=== PATIENT | male | born 1965 | race Caucasian/White ===

== ENCOUNTER 2020-02-29 01:27 | Emergency (ER) | payer OTHER, SELFPAY ==
[2020-02-29] VITALS (7 sets, daily range): BP systolic 131–153; BP diastolic 76–97; PULSE 50–82; RESP 12–18; TEMP 36.7–37.2; O2SAT 96–98; BMI 25.0
--- NOTE | 2020-02-29 01:50 | ECG_ITS ---
APPROVED REPORT Exam: Resting ECG HR:50 bpm ECG Measurements Heart Rate 50 AXES CA 176 P 24 QRSd 90 QRS -14 QT 440 T 11 QTc 401 <Conclusion> Sinus bradycardia Voltage criteria for left ventricular hypertrophy Abnormal ECG Electronically signed by : Cullen Zhang, 02/29/2020 08:34:56
--- NOTE | 2020-02-29 01:53 | XR_ITS ---
PROCEDURE: XR CHEST 2V CLINICAL HISTORY: chest pain Scapular pain, chest pain COMPARISON: No exams were available for comparison FINDINGS: The cardiomediastinal silhouette and pulmonary vascularity are within normal limits. The lungs are clear without infiltrates, suspicious nodules, or pleural effusions. No acute bony abnormalities. IMPRESSION: No acute findings. Dictated by: Asaf Huggins MD 02/29/2020 07:40 Asaf Huggins MD in [place] 02/29/2020 07:59
[2020-02-29 02:00] LABS: Basophils # 0.1 K/mm3 (0-0.2); Basophils % 0.7 % (0.1-2.0); Eosinophils # 0.3 K/mm3 (0.0-0.4); Eosinophils % 4.3 % (0.1-12.0); Hematocrit 45.9 % (42.0-52.0); Hemoglobin 15.7 g/dL (14.1-18.0); Lymphocytes # 2.5 K/mm3 (0.7-4.5); Lymphocytes % 36.3 % (10-50); Mean Corpuscular HGB Conc 34.1 g/dL (31.8-35.4); Mean Corpuscular Hemoglobin 30.5 pg (27.0-31.2); Mean Corpuscular Volume 89.3 fl (80-94); Mean Platelet Volume 8.1 fl (7.4-10.4); Monocytes # 0.4 K/mm3 (0.1-1.0); Monocytes % 5.7 % (1.7-9.3); Neutrophils # 3.6 K/mm3 (1.8-7.8); Neutrophils % 52.9 % (37.0-80.0); Platelet Count 170 K/mm3 (142-424); Red Blood Count 5.14 M/mm3 (4.60-6.20); Red Cell Distribution Width 13.7 % (11.5-17.5); White Blood Count 6.9 K/mm3 (4.8-10.8)
[2020-02-29 02:06] LABS: Anion Gap 10.8 mEq/L (5-15); Blood Urea Nitrogen 11 mg/dl (9-20); Carbon Dioxide 31 mmol/L (22.0-30.0); Chloride 102 mmol/L (98-107); Creatinine Clearance Estimated 123 mL/min (50-200); Estimated Glomerular Filt Rate 101 ml/min (>60); GFR (African American) 122 ML/MIN (>60); Glucose 105 mg/dl (74-100); Potassium 3.8 mmoL/L (3.5-5.1); Sodium 140 mmol/L (136-145)
[2020-02-29 02:22] LABS: Troponin I < 0.01 ng/ml (0.00-0.034)
--- NOTE | 2020-02-29 02:50 | HMH.EDCP ---
ED Disposition Clinical Impression: Atypical chest pain Disposition: Home, Self-Care Condition on Discharge: Good Instructions: DI for Atypical Chest Pain Additional Instructions: call pcp for follow up Referrals: Rocío Rhodes MD [Primary Care Provider] - - Critical Care Critical Care Time: No Attestation: On 02/29/20, the high probability of a clinically significant, sudden or life threatening deterioration of the following system(s) required my full and direct attention, intervention and personal management. The time I documented below is in addition to time spent performing reported procedures but includes the following listed in this critical care notation. Medical Decision Making - Medical Records Medical records reviewed: Yes: I reviewed the patient's medical records. - [place] Inquiry Pt receiving controlled substance: No Vital Signs: 02/29/20 01:42 02/29/20 02:52 02/29/20 03:18 Temperature 98.9 F Temperature Source Oral Pulse Rate [Right Brachial] 77 56 L 50 L Respiratory Rate 16 18 18 Blood Pressure [Right Arm] 150/97 H 137/79 131/77 Blood Pressure Mean [Right Arm] 114 98 95 Blood Pressure Source [Right Arm] Automatic Cuff Blood Pressure Position [Right Arm] Sitting 02 Sat by Pulse Oximetry 98 97 98 Oxygen Delivery Method Room Air 02/29/20 03:30 02/29/20 04:00 02/29/20 05:07 Temperature 98.0 F Temperature Source Oral Pulse Rate [Right Brachial] 76 82 61 Respiratory Rate 12 16 18 Blood Pressure [Right Arm] 141/79 H 153/80 H 138/76 Blood Pressure Mean [Right Arm] 99 104 96 Blood Pressure Source [Right Arm] Automatic Cuff Automatic Cuff Blood Pressure Position [Right Arm] Sitting Sitting 02 Sat by Pulse Oximetry 98 98 96 Oxygen Delivery Method Room Air - Lab Data Lab results reviewed: Yes: I reviewed the patient's lab results. Lab Results 02/29/20 01:49: WBC 6.9, RBC 5.14, Hgb 15.7, Hct 45.9, MCV 89.3, MCH 30.5, MCHC 34.1, RDW 13.7, Plt Count 170, MPV 8.1, Neut % (Auto) 52.9, Lymph % (Auto) 36.3, [place] % (Auto) 5.7, Eos % (Auto) 4.3, Baso % (Auto) 0.7, Neut # (Auto) 3.6, Lymph # (Auto) 2.5, [place] # (Auto) 0.4, Eos # (Auto) 0.3, Baso # (Auto) 0.1 02/29/20 01:49: Troponin I < 0.01 02/29/20 01:49: Sodium 140, Potassium 3.8, Chloride 102, Carbon Dioxide 31 H, Anion Gap 10.8, BUN 11, Creatinine 0.80, Estimated Creat Clear 123, Estimated GFR 101, Est GFR ( Amer) 122, Glucose 105 H, Calcium 9.0 02/29/20 01:49: Lipase 64 02/29/20 04:22: Troponin I < 0.01 Result diagrams: 02/29/20 01:49 02/29/20 01:49 Orders (Tests/Meds): ED MEDICATIONS Discontinued Medications Generic Name Dose Route Start Last Admin Trade Name Freq PRN Reason Stop Dose Admin Ioversol 70 ml 02/29/20 03:42 02/29/20 03:43 Rad-Optiray 350 100ml Vial IV 02/29/20 03:43 70 ml ONCE ONE Administration Protocol Sodium Chloride 40 ml 02/29/20 03:42 02/29/20 03:31 Rad-Ns 50ml Vial IV 02/29/20 03:43 40 ml ONCE ONE Administration Sodium Chloride 10 ml 02/29/20 03:42 02/29/20 03:31 Rad-Saline Flush 10ml Syringe IV 02/29/20 03:43 10 ml ONCE ONE Administration ORDERS Category Date Time Status CT Chest w/PE protocol [CT angio chest] Stat Cat Scan 02/29/20 03:03 Taken XR chest 2V Stat Exams 02/29/20 01:53 Taken Troponin I Q3H Lab 02/29/20 08:00 Ordered - Radiology Data #1 Image(s): Chest Image Reviewed: Yes I reviewed the patient's radiology image Preliminary Findings: Normal/NAD - CT Data CT Scan: Chest Time Received: 05:[address] Reviewed: Yes: I have viewed the radiologist's interpretation Preliminary Findings: Normal/NAD - ECG Data Tracing #1 Arrhythmias present: sinus kaitlin Ischemic changes: non-specific ST-T wave changes Chest Pain HPI - General Chief Complaint: Chest Pain Stated Complaint: Upper back pain, no injury Time Seen by Provider: 02/29/20 02:00 Mode of Arrival: Family Vehicle Source of Information: [place]
--- NOTE | 2020-02-29 03:03 | CT_ITS ---
PROCEDURE: CT ANGIO CHEST CLINCIAL INDICATION: scapula pain Left-sided chest and scapular pain COMPARISON: CT ABDPELW/O CT ABD PELVIS W/O CONTRAST from 01/17/2013 TECHNIQUE: IV Contrast: 70ML OPTIRAY 350 Axial images obtained with sagittal and coronal reformats. All CT scans at the facility use one or more dose reduction, viz: automated exposure control, ma/kV adjustment per patient size (including targeted exams where dose is matched to indication, i.e. head), or iterative reconstruction technique. FINDINGS: HEART AND MEDIASTINAL STRUCTURES: No evidence of pulmonary embolus aortic aneurysm or aortic dissection. No mediastinal or hilar mass. There is mild nonspecific thickening of the esophagus. LUNGS AND PLEURAL SPACES: Calcified granuloma right upper lobe. Minimal atelectatic or fibrotic change in the left lung base. No lobar consolidation or collapse. BONY STRUCTURES: No acute bony abnormalities apparent. UPPER ABDOMEN: There are at least 3 hypodense lesions of the liver the largest in the left hepatic lobe at 1.8 cm and may represent hepatic cyst. ADDITIONAL FINDINGS: IMPRESSION: 1. No evidence of pulmonary embolus. 2. No acute findings of the chest. 3. Multiple hypodense lesions of the liver which may represent hepatic cyst and may be confirmed with ultrasound if clinically desired. Dictated by: Asaf Huggins MD 02/29/2020 08:16 Asaf Huggins MD in [place] 02/29/2020 08:16
[2020-02-29 03:18] LABS: Lipase 64 U/L (23-300)
[2020-02-29 05:05] LABS: Troponin I < 0.01 ng/ml (0.00-0.034)
== END 2020-02-29 05:19 | disposition home or self-care (01) ==
PROVIDERS: Emergency Provider Emergency Medicine; PCP Family Medicine
DX: R07.89 Other chest pain (principal)
CPT/HCPCS: 71046; 71275; 80048; 83690; 84484; 85025; 93005; 99284; Q9967

== ENCOUNTER → 2020-03-25 13:31 | Outpatient (CLI) | payer OTHER, SELFPAY ==
--- NOTE | 2020-03-25 13:36 | CA_ITS ---
APPROVED REPORT EXAM: Comprehensive 2D, Doppler, and color-flow Echocardiogram [employer] Designer: Laquita Thornton CRT Ht: 6 ft 0 in Wt: 230lbs BSA: 2.26 BP: 110/60 mmHg Indications: CP 2D Dimensions LVOT 2.43 cm (M/F) 1.5-2.5 M-Mode Dimensions RVDd 2.62 cm (0.9-2.6) LVDd 5.09 cm (3.5-5.7) LVDs 3.04 cm (3.5-5.7) IVSd 1.29 cm (0.6-1.1) PWd 0.91 cm (0.6-1.1) EF (Teich) 70.60% FS 40.30% EDV (Teich) 123.20 mL ESV (Teich) 36.20 mL LV Diastology E/A Ratio 1.07 Aortic Valve LVOT Max 95.00 (70-110 cm/s) LVOT VTI 21.86 cm Mitral Valve MV A Velocity 70.00 (40-130 cm/s) Left Ventricle Left atrium is mildly enlarged, left ventricle is normal size, mild concentric left ventricular hypertrophy, visually estimated ejection fraction 55% with no regional wall motion abnormality, grade 1 diastolic dysfunction seen without tissue Doppler evidence of raise left atrial pressure. Right Ventricle Right atrium and right ventricle are mildly enlarged with normal contractility. Aortic Valve Aortic valve is thickened and calcified leaflet continue to display good mobility, there is no aortic stenosis, there is moderate aortic insufficiency. Mitral Valve Mitral valve is grossly normal, there is mild mitral regurgitation. Tricuspid Valve Tricuspid valve is grossly normal, there is mild tricuspid regurgitation, tricuspid regurgitation jet velocity is inadequate for calculation of the right ventricular systolic pressure. Pulmonic Valve Pulmonic valve is poorly visualized. Great Vessels Aortic root is normal size. Pericardium No significant pericardial effusion noted Conclusion 1. Biatrial enlargement, normal left ventricular size, mild concentric left ventricular hypertrophy, visually estimated ejection fraction 55% with no regional wall motion abnormality, grade 1 diastolic dysfunction seen without tissue Doppler evidence of raise left atrial pressure. 2. Mildly enlarged right ventricle with normal contractility. 3. Thickened and calcified aortic valve without aortic stenosis, there is moderate aortic insufficiency. 4. Mild mitral and tricuspid regurgitation. 5. No significant pericardial effusion noted. Electronically signed by : Justice Romero, 03/28/2020 20:35:34
== END ==
PROVIDERS: PCP Family Medicine; Visit Provider Family Medicine
DX: M54.6 Pain in thoracic spine (principal)
CPT/HCPCS: 93306

== ENCOUNTER 2020-07-04 09:23 | Emergency (ER) | payer OTHER, SELFPAY ==
[2020-07-04 09:35] VITALS: BP 134/92; PULSE 96; RESP 14; TEMP 36.2; O2SAT 97; BMI 31.1
--- NOTE | 2020-07-04 10:08 | HMH.EDUTC ---
[facility] Disposition Clinical Impression: Encounter for laboratory testing for COVID-19 virus Disposition: Home, Self-Care Condition on Discharge: Good Instructions: DI for COVID-19 (Suspected or Confirmed ), Coronavirus Disease 2019, Preventing the Spread of Coronavirus Discharge Instructions Additional Instructions: *Monitor Temp, Over the counter Motrin or Tylenol as directed/as needed Tylenol every 4 hours and Motrin every 6 hours (as long as your family doctor has told you that you can take it) for fever or pain. and straight to ER if unable to lower temp less than 101.0 after medication given *Warm salt water gargles may help to soothe the throat *Throat Lozenges *Warm fluids like tea with honey may help to soothe the throat *Sleep elevated *Humidifier/Vaporizer Follow up IMMEDIATELY for new or worsening symptoms or no Noticeable improvement over the next 48-72 hours. 911 for difficulty breathing or swallowing You were tested for today for COVID19 your test result should be back in the next 24-48 hours, you may call to the [facility] [[email or web address]] to see if your test results are back in the next 48 hours [phone] [facility] [[email or web address]] hours are 9am-9pm You was given a handout with instructions for Self Quarantine and Self isolation for while you wait on test results and what to do if they are positive If you are positive the Health Dept will be contacting you also Referrals: Rocío Rhodes MD [Primary Care Provider] - As needed Forms: Work/School Release Time of Disposition: 10:09 Medical Decision Making - Neftaly Inquiry Pt receiving controlled substance: No Neftaly was queried for this patient: No Vital Signs: 07/04/20 09:35 Temperature 97.1 F L Temperature Source Oral Pulse Rate [Right Brachial] 96 H Respiratory Rate 14 Blood Pressure [Right Arm] 134/92 H Blood Pressure Mean [Right Arm] 106 Blood Pressure Source [Right Arm] Automatic Cuff Blood Pressure Position [Right Arm] Sitting 02 Sat by Pulse Oximetry 97 Oxygen Delivery Method Room Air - Lab Data Lab results reviewed: Yes: I reviewed the patient's lab results. Orders (Tests/Meds): ORDERS Category Date Time Status Covid-19 Nasal PCR ([place]) Routine Lab 07/04/20 09:45 Received [facility] HPI - General Stated complaint: covid test Time Seen by Provider: 07/04/20 10:08 Mode of Arrival: Ambulatory Source of Information: Patient Limitations: No Limitations Description of Symptoms (Recalled from Triage Doc. by RN): PATIENT C/O FLU-LIKE SYMPTOMS SINCE SATURDAY. REQUESTING A FLU AND COVID TEST HEENT Symptoms (Recalled from RN notes): No Resp Symptoms (Recalled from RN notes): No Skin Symptoms (Recalled from RN notes): No MS Symptoms (Recalled from RN notes): No Functional Status (Recalled from RN notes): WNL - History of Present Illness Provider Complaint: Patient state that he started feeling bad on Saturday States that he has been having chills, body aches, fever and diarrhea on and off all weekend States that he felt like he may have the flu and wanted to get tested for Flu and COVID - Related Data Home Medications Medication Instructions Recorded Confirmed Metoprolol Succinate [Metoprolol 25 mg PO DAILY 02/29/20 02/29/20 Succinate 25mg Tablet*] Pravastatin Sodium [Pravachol 20mg 80 mg PO HS 02/29/20 02/29/20 Tablet] Ramipril 10 mg PO DAILY 02/29/20 02/29/20 metOLazone [metOLazone 2.5mg 2.5 mg PO DAILY 02/29/20 02/29/20 Tablet] Allergies Allergy/AdvReac Type Severity Reaction Status Date / Time No Known Allergies Allergy Verified 07/04/20 09:54 - Worker's Comp Is this a Worker's Comp case?: No [place] History - Hepatitis A Screen Drug use history?: No High risk sexual behaviors?: No History of sexually transmitted infection?: No Currently employed?: No Childcare worker?: No Do you have indoor plumbing?: Yes Do you have electricity?: Yes Attestation statement:: This patient has been screened for Hepatitis A risk factors. I have re
[2020-07-04 10:12] VITALS: BP 134/92; PULSE 96; RESP 14; TEMP 36.2; O2SAT 97
[2020-07-05 09:14] LABS: Covid-19 Nasal PCR Sendout P&C POSITIVE
--- NOTE | 2020-07-05 16:01 | PC.NURSE ---
pt notified of positive covid result
== END 2020-07-04 10:15 | disposition home or self-care (01) ==
PROVIDERS: Emergency Provider Nurse Practitioner; PCP Family Medicine
DX: U07.1 COVID-19 (principal)
CPT/HCPCS: 99202; G0463; U0004

== ENCOUNTER → 2020-09-14 10:23 | Outpatient (CLI) | payer OTHER, SELFPAY ==
--- NOTE | 2020-09-14 10:30 | XR_ITS ---
PROCEDURE: XR KNEE LT 3V CLINICAL INDICATION: LT KNEE ARTHROPATHY COMPARISON: No exams were available for comparison FINDINGS: No fracture or dislocation. No lytic or blastic change. There is normal mineralization. Moderate degenerative changes of the knee joint with prominence of the intercondylar tubercles and tricompartmental osteophyte formation. Other findings:Multiple surgical clips are noted on the posterolateral aspect of the knee joint. IMPRESSION: Degenerative changes as described above. No acute fractures or dislocations. Dictated by: Susana Chavarria 09/14/2020 15:11 Susana Chavarria in [place] 09/14/2020 15:11
== END ==
PROVIDERS: PCP Family Medicine; Visit Provider Family Medicine
DX: M17.12 Unilateral primary osteoarthritis, left knee (principal)
CPT/HCPCS: 73562

== ENCOUNTER → 2021-02-07 14:21 | Outpatient (CLI) | payer OTHER, SELFPAY ==
--- NOTE | 2021-02-07 14:24 | US_ITS ---
PROCEDURE: US TESTICULAR CLINICAL INDICATION: TESTICULAR LESION COMPARISON: No exams were available for comparison FINDINGS: The right testicle is 4 x 2 x 3 cm. No testicular mass apparent. Blood flow is present to the right testicle. There is some heterogeneous echogenicity of the epididymal head. The left testicle is 4.5 x 2.1 x 3.3 cm. Blood flow is present. There is a small cyst along the dorsal and medial aspect of the left testicle measuring 5 x 4 mm corresponding to the palpable abnormality. Left epididymal head is slightly prominent measuring 1.8 x 1 cm containing a 1 cm cyst. There is heterogeneous echogenicity of the epididymal head with a few other small cystic areas apparent. No varicocele apparent IMPRESSION: Palpable abnormality of the left testicle corresponds to a small testicular cyst at approximately 5 x 4 mm. 1 cm left spermatocele Bilateral heterogeneity of the epididymal head which is slightly prominent which could be result of prior epididymitis. Dictated by: Asaf Huggins MD 02/07/2021 17:16 Asaf Huggins MD in [place] 02/07/2021 17:16
== END ==
PROVIDERS: PCP Family Medicine; Visit Provider Family Medicine
DX: N50.9 Disorder of male genital organs, unspecified (principal)
CPT/HCPCS: 76870

== ENCOUNTER 2021-03-03 09:00 | Outpatient (RCR) | payer OTHER, SELFPAY ==
--- NOTE | 2021-02-07 14:40 | HMH.PTOPEV ---
PT Outpatient Evaluation Rehab PT Outpatient Evaluation Start: 02/07/21 14:27 Freq: Status: Active Protocol: Document 02/07/21 14:27 DAVIDMARY ELLEN (Rec: 02/07/21 14:40 GREGORIAKARL [id number]) Electronically Signed By Bill Ingram, PT 02/07/21 14:27 Outpatient Therapy Subjective History Subjective History Patient is a 55 year old male presenting to outpatient PT with reports of L anterolateral thigh pain starting approximately 10 years ago. Patient underwent phlebectomy surgery approximately 25 years ago to address varicosities. Patient experiences claudication with all standing/ambulatory activities. Comorbidities include hx of HTN, HL, appendectomy, kidney stones and L posterior hip benign lumpectomy. Chief Complaint Pain,Weakness Symptom Type Ache Symptoms Relieved By Rest/Positioning Prior Functional Limitations None Current Functional Limitations Housework,Standing,Walking Symptom Description Constant but Variable Level of pain today (0-10) 1 Pain scale - at its best (0-10) 0 Pain scale - at its worst (0-10) 8 Hip/Knee Eval Gait Observation General Gait Pattern Observation No Deviations/Normal Assistive Device Assistive Devices None / NA Palpation Tenderness left Knee Palpation Overall Comment L anterolateral thigh mm 2/4 Hip Palpation Findings Tenderness MMT Hip Flexion Strength Grade 4 Good Hip Abduction Strength Grade 4 Good Hip Adduction Strength Grade 4 Good Hip Extension Strength Grade 4 Good Hip External Rotation Strength Grade 4 Good Hip Internal Rotation Strength Grade 4 Good Knee Extension Strength Grade 5 Normal Knee Flexion Strength Grade 5 Normal ROM Hip Flexion w/Knee Flexed Active Range 95 of Motion (degrees) Hip Flexion w/Knee Extended Active Range 45 of Motion (degrees) Hip Abduction Active Range of Motion ( 40 degrees) Hip Extension Active Range of Motion ( 8 degrees) Hip External Rotation Active Range of 42 Motion (degrees) Hip Internal Rotation Active Range of 8 Motion (degrees) Hip ROM Limitations Soft Tissue Tightness Knee ROM Reason Not Measured Within Functional Limits Special Tests Hip Princess Test Positive Left Hip Piriformis Test
== END 2021-03-03 09:05 | disposition home or self-care (01) ==
LOC: PT 09:00
PROVIDERS: PCP Family Medicine; Visit Provider Family Medicine
DX: M79.605 Pain in left leg (principal)
CPT/HCPCS: 97140; 97163

== ENCOUNTER → 2021-05-25 08:52 | Outpatient (CLI) | payer OTHER, SELFPAY ==
[2021-05-25 10:37] LABS: Prostate Specific Ag Screen 5.1 ng/ml (0.0-4.0)
[2021-05-29 22:28] LABS: Testosterone, Total, LC/MS 487.1 ng/dL (264.0-916.0); Testosterone,Free 9.3 pg/mL (7.2-24.0)
== END ==
PROVIDERS: Visit Provider Urology
DX: R68.82 Decreased libido (principal); Z12.5 Encounter for screening for malignant neoplasm of prostate
CPT/HCPCS: 36415; 84402; 84403; G0103

== ENCOUNTER → 2021-07-07 09:32 | Outpatient (CLI) | payer OTHER, SELFPAY ==
--- NOTE | 2021-07-07 09:35 | XR_ITS ---
FINAL REPORT CLINICAL HISTORY: left medial knee pain NKI COMPARISON: 09/14/2020 FINDINGS: LEFT KNEE Four views demonstrate no acute fracture. There are mild degenerative changes. Postoperative changes are seen in the soft tissues. Patella ulta is noted which appears worse, patellar tendon tear is not excluded. IMPRESSION: Patella ulta is noted, patellar tendon tear is not excluded. MRI could further evaluate. Reviewed, Interpreted and Dictated by Willie Khan III, MD Transcribed by Cindy Moreno Authenticated by Willie Khan III, MD on 07/07/2021 10:59:57 AM [facility]
== END ==
PROVIDERS: PCP Family Medicine; Visit Provider Orthopaedic Surgery
DX: M25.562 Pain in left knee (principal)
CPT/HCPCS: 73564

== ENCOUNTER → 2021-07-17 09:37 | Outpatient (CLI) | payer OTHER, SELFPAY ==
[2021-07-17 11:00] LABS: Prostate Specific Ag, Diagnost 5.18 ng/ml (0.0-4.0)
== END ==
PROVIDERS: PCP Family Medicine; Visit Provider Urology
DX: R97.20 Elevated prostate specific antigen [PSA] (principal)
CPT/HCPCS: 36415; 84153

== ENCOUNTER → 2021-07-18 14:17 | Outpatient (CLI) | payer OTHER, SELFPAY ==
--- NOTE | 2021-07-18 14:17 | MR_ITS ---
FINAL REPORT CLINICAL HISTORY: knee pain. question meniscus tear. swelling. medial knee pain and tenderness FINDINGS: Multiplanar MR imaging of the right knee was performed without contrast. There is a tear of the posterior horn of the medial meniscus. There is a tear of the anterior horn of the lateral meniscus. The anterior and posterior cruciate ligaments are intact. The medial collateral ligament and lateral ligamentous complex are intact. The patellar and quadriceps tendons are intact. There is no evidence of fracture. There are mild degenerative changes. There is moderate medial compartment chondromalacia. 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 There is mild lateral patellar subluxation. A moderate joint effusion is seen. The musculature is intact. No soft tissue mass or cyst is identified. IMPRESSION: Tear is of the posterior horn of the medial meniscus in the anterior horn of the lateral meniscus. Mild degenerative change with moderate and severe chondromalacia. Moderate joint effusion. Mild lateral patellar subluxation. Reviewed, Interpreted and Dictated by Willie Khan III, MD Transcribed by Darrell Guzman Authenticated by Willie Khan III, MD on 07/18/2021 03:46:07 PM [facility]
== END ==
PROVIDERS: PCP Family Medicine; Visit Provider Orthopaedic Surgery
DX: M25.562 Pain in left knee (principal)
CPT/HCPCS: 73721

== ENCOUNTER → 2021-08-09 09:05 | Outpatient (CLI) | payer OTHER, SELFPAY ==
[2021-08-09 09:34] LABS: Basophils # 0.3 K/mm3 (0-0.2); Basophils % 4.8 % (0.1-2.0); Eosinophils # 0.2 K/mm3 (0.0-0.4); Eosinophils % 3.2 % (0.1-12.0); Hematocrit 48.6 % (42.0-52.0); Lymphocytes # 1.6 K/mm3 (0.7-4.5); Lymphocytes % 26.4 % (10-50); Mean Corpuscular HGB Conc 32.9 g/dL (31.8-35.4); Mean Corpuscular Hemoglobin 29.4 pg (27.0-31.2); Mean Corpuscular Volume 89.2 fl (80-94); Mean Platelet Volume 8.6 fl (7.4-10.4); Monocytes # 0.4 K/mm3 (0.1-1.0); Monocytes % 6.7 % (1.7-9.3); Neutrophils # 3.9 K/mm3 (1.8-7.8); Neutrophils % 63.8 % (37.0-80.0); Platelet Count 173 K/mm3 (142-424); Red Blood Count 5.44 M/mm3 (4.60-6.20); Red Cell Distribution Width 14.6 % (11.5-17.5); White Blood Count 6.1 K/mm3 (4.8-10.8)
[2021-08-09 09:55] LABS: Chloride 103 mmol/L (98-107); Sodium 135 mmol/L (136-145)
[2021-08-09 09:56] LABS: Potassium 3.8 mmoL/L (3.5-5.1)
[2021-08-09 09:58] LABS: Alanine Aminotransferase 27 U/L (12-78); Albumin Level 4.1 g/dl (3.5-5.0); Albumin/Globulin Ratio 1.8 (1.1-1.8); Alkaline Phosphatase 70 U/L (38-126); Anion Gap 6.8 mEq/L (5-15); Aspartate Amino Transferase 30 U/L (17-59); Bilirubin,Total 2.4 mg/dl (0.2-1.3); Blood Urea Nitrogen 9 mg/dl (9-20); Carbon Dioxide 29 mmol/L (22.0-30.0); Estimated Glomerular Filt Rate 101 ml/min (>60); GFR (African American) 122 ML/MIN (>60); Globulin 2.3 g/dL (1.3-3.2); Total Protein,Serum 6.4 g/dl (6.3-8.2)
[2021-08-09 09:59] LABS: Calcium 8.3 mg/dl (8.4-10.2); Glucose 94 mg/dl (74-100)
== END ==
PROVIDERS: Visit Provider Orthopaedic Surgery
DX: Z01.812 Encounter for preprocedural laboratory examination (principal); Z11.52 Encounter for screening for COVID-19; M25.562 Pain in left knee
CPT/HCPCS: 36415; 80053; 85025; C9803; U0003; U0005

== ENCOUNTER 2021-08-11 06:03 | Day surgery (SDC) | payer OTHER, SELFPAY ==
[2021-08-10 09:41] VITALS: BMI 32.8
[2021-08-11] VITALS (14 sets, daily range): BP systolic 118–132; BP diastolic 71–88; PULSE 66–88; RESP 12–20; TEMP 36.6–43; O2SAT 94–97
--- NOTE | 2021-08-11 07:20 | P.PN_ITS ---
[facility] Anesthesia Checklist - Structural Data Admitted From: Home Planned Operative Procedure/s: knee arthroscopy Consent for Planned Operative Procedure(s) Verified: Yes - Additional verifications Anesthesia Reactions: No Hx Blood Transfusions: No Blood Transfusion Reaction: No - Airway Assessment C-Spine Mobility Assessed: Yes TMJ Mobility Assessed: Yes Dentition: Good Dentition - Neurological Assessment Level of Consciousness: Awake, Alert, Appropriate - Anesthesia Plan Anesthesia Risk discussed: Yes Anesthesia Plan: Verified ASA Class: II Anesthesia Type: General [facility] History I have reviewed the patient's past medical history: Yes Medical History: Reports:: Hyperlipidemia, Hypertension Denies:: Cancer, Diabetes Mellitus Type 1, Diabetes Mellitus Type 2, Internal Pacemaker, MRSA, Seizures *Have you ever received a pneumonia vaccine?: No *Have you received a flu vaccine this season?: No Other Medical History: Reports: Arthritis. Denies: Blood Transfusion Reaction Anesthesia experience/problems:: none Other Surgeries: Yes: No Previous Surgery, Colonoscopy. No: Pacemaker Amputation: No Fractures: No - *Social History Last grade of school completed: Some college Smoking Status: Never smoker Alcohol Intake: never Substance Use Type: denies use *Occupational Status:: employed Housing: house Household Members: spouse *Travel in the last 8 weeks: None Family Hx:: Diabetes, Heart Attack, Stroke
--- NOTE | 2021-08-11 08:47 | HMH.ANESI ---
[facility] Anesthesia Record Part I Intake, IV Amount: 1,500 Estimated blood loss (mL): 0 Urine output (mL): 0 Blood Pressure: 124/86 SaO2: 95 Pulse Rate: 88 Respiratory Rate: 12 Temperature: 98.2 F Patient is:: Awake, Stable Stable to PACU at:: 08:45
--- NOTE | 2021-08-11 08:49 | P.OP_ITS ---
Date of procedure: 08/11/21 Pre-op Diagnosis:: Left medial and lateral meniscus tear Post-op Diagnosis:: Left medial and lateral meniscus tear, patellofemoral, lateral, medial compartment arthritis Procedure performed:: 02014: Left knee arthroscopy with medial lateral partial meniscectomy Surgeon:: Avtar Valencia JR, MD [employer] INSTRUCTOR:: Richard Ruiz Anesthesia: GETA Estimated blood loss (mL): 5 Operative findings:: Degenerative meniscal tears debrided, arthritic changes, tricompartmental, worst in the patellofemoral joint Operative note:: Patient was identified in preoperative holding. Operative site was marked in indelible ink. History, physical, consent were reviewed and updated. Patient was surrendered to the anesthesia team, taken to the operative suite, placed supine on a well-padded operative table. Ipsilateral hip bump was placed as was a nonsterile thigh tourniquet and thigh mcdaniels. Anesthesia was induced. The operative extremity was prepped and draped in the usual sterile fashion. The operative team donned sterile gowns and gloves and a timeout was called. All in attendance agreed regarding the patient's identity, procedure, operative site. Weight-based dose of antibiotics was given prior to incision. I established a lateral portal, performed a diagnostic arthroscopy, noted full- thickness cartilage defect of the patellofemoral joint, partial-thickness cartilage defects in the medial lateral compartment as well as degenerative medial and lateral meniscus tear. Under direct visualization, I established a medial portal with care taken to avoid injuring the anterior horn of the medial meniscus. I then debrided the lateral meniscus back to healthy appearing margins. I switched the camera to the medial portal, using the arthroscopic biter and corbin, I then debrided the medial meniscus. I debrided synovitic tissue from the femoral notch, suprapatellar pouch. I then drained the saline solution, removed the instruments and closed the skin using Monocryl, Prineo, Dermabond. Sterile dressing and Cryo/Cuff was applied. Counts were correct x2. There were no apparent complications. I was present and scrubbed for the entire case. Tourniquet time (min): 30 Condition: stable Disposition: PACU Complications:: None apparent
--- NOTE | 2021-08-11 09:18 | SUR.PHASEI ---
0915 Detailed report provided to JAH Baires. Pt left in stable condition with RN.
--- NOTE | 2021-08-14 08:58 | HMH.ANESII ---
[facility] Anesthesia Record Part II Discharge Time: 09:15 Destination: [facility] PACU nurse assessment reviewed?: Yes Patient Condition:: Good Anesthesia Complications:: None Swallowing reflex intact?: Yes Cyanosis?: No Blood Pressure: 118/74 Pulse Rate: 80 Temperature: 98 F Mental Status: Alert & Oriented Pain level:: 2 Nausea and/or vomitting:: None Intake, IV Amount: 500
[2021-08-14 08:59] VITALS: BP 118/74; PULSE 80; TEMP 36.6
== END 2021-08-11 10:30 | disposition home or self-care (01) ==
LOC: OR 06:07
PROVIDERS: PCP Family Medicine; Visit Provider Orthopaedic Surgery
PROC: (CPT 29870; principal; 2021-08-11 07:30)
DX: M23.201 Derangement of unspecified lateral meniscus due to old tear or injury, left knee (principal); M23.203 Derangement of unspecified medial meniscus due to old tear or injury, right knee
CPT/HCPCS: 29880; 96374; J2405

== ENCOUNTER → 2021-08-16 10:02 | Outpatient (CLI) | payer OTHER, SELFPAY | PROVIDERS: Visit Provider Urology | DX: Z01.812 Encounter for preprocedural laboratory examination (principal); Z11.52 Encounter for screening for COVID-19; R97.20 Elevated prostate specific antigen [PSA] | CPT/HCPCS: C9803; U0003; U0005 ==

== ENCOUNTER 2021-08-18 08:23 | Day surgery (SDC) | payer OTHER, SELFPAY ==
[2021-08-16 08:56] VITALS: BMI 32.5
[2021-08-18 08:39] VITALS: BP 156/92; PULSE 73; RESP 18; TEMP 36.6; O2SAT 9
--- NOTE | 2021-08-18 09:08 | P.PN_ITS ---
[facility] Anesthesia Checklist - Patient Identification Patient Identification: Arm Band, Verbal (Name & ) - Structural Data Admitted From: Home Planned Operative Procedure/s: Prostate BX Consent for Planned Operative Procedure(s) Verified: Yes Verified Documents: Surgical Consent - NPO Status Verified Time NPO: 00:00 - Additional verifications Anesthesia Reactions: No Hx Blood Transfusions: No Blood Transfusion Reaction: No - Airway Assessment C-Spine Mobility Assessed: Yes TMJ Mobility Assessed: Yes Dentition: Good Dentition - Neurological Assessment Level of Consciousness: Awake, Alert, Appropriate - Anesthesia Plan Anesthesia Risk discussed: Yes ASA Class: II Anesthesia Type: MAC [facility] History Medical History: Reports:: Hyperlipidemia, Hypertension Denies:: Cancer, Diabetes Mellitus Type 1, Diabetes Mellitus Type 2, Internal Pacemaker, MRSA, Seizures *Have you ever received a pneumonia vaccine?: No *Have you received a flu vaccine this season?: No Other Medical History: Reports: Arthritis. Denies: Blood Transfusion Reaction Anesthesia experience/problems:: none Laterality Cases: Left: Arthroscopy Knee Other Surgeries: Yes: No Previous Surgery, Colonoscopy. No: Pacemaker Amputation: No Fractures: No - *Social History Last grade of school completed: Some college Smoking Status: Never smoker Alcohol Intake: never Substance Use Type: denies use *Occupational Status:: employed Housing: house Household Members: spouse *Travel in the last 8 weeks: None Family Hx:: Cancer, Coronary Artery Disease, Stroke
[2021-08-18 09:51] VITALS: BP 112/71; PULSE 72; RESP 18; TEMP 36.1; O2SAT 94
[2021-08-18 10:06] VITALS: BP 114/70; PULSE 74; RESP 18; O2SAT 96
[2021-08-18 10:21] VITALS: BP 112/69; PULSE 70; RESP 18; O2SAT 95
--- NOTE | 2021-08-18 12:56 | HMH.OPNOTE ---
Date of procedure: 08/18/21 Pre-op Diagnosis:: Elevated PSA Post-op Diagnosis:: Elevated PSA Procedure performed:: Prostate biopsy with transrectal ultrasound guidance Surgeon:: Jerry Gagnon MD TALENT ACQUISITION PARTNER:: Richard Ruiz Anesthesia: MAC Estimated blood loss (mL): 0 Clinical Note:: 85-year-old white male with elevated PSA and prostate abnormality on the left side presents for prostate biopsy. Patient states he performed preoperative enema this morning and has been on oral antibiotics since yesterday. Operative findings:: Prostate was measured at 28.8 cm?. A hypoechoic area was noted in the left prostatic apex. Operative note:: Patient taken to the operating room after informed consent was obtained. On the stretcher he was placed into the left lateral decubitus position and monitored anesthesia care administered. Once adequate analgesia was achieved the transrectal ultrasound probe was placed into the rectum. The prostate was easily visualized and was measured at 28.8 cm?. There were some large calcifications in the central zone. There is a small hypoechoic area in the left prostatic apex. Local anesthetic placed into each neurovascular bundle and prostate biopsy was then performed in a systematic fashion for total of 12. This included through the left hypoechoic area. Samples were sent to pathology. The probe removed patient tolerated procedure well no complications. Condition: stable Disposition: same day Specimens:: Prostate biopsies x12 Complications:: None
== END 2021-08-18 10:21 | disposition home or self-care (01) ==
PROVIDERS: PCP Family Medicine; Visit Provider Urology
PROC: (CPT 55700; principal; 2021-08-18 09:45)
DX: C61 Malignant neoplasm of prostate (principal); E78.5 Hyperlipidemia, unspecified; I10 Essential (primary) hypertension; M19.90 Unspecified osteoarthritis, unspecified site; Z80.9 Family history of malignant neoplasm, unspecified; Z82.3 Family history of stroke; R97.20 Elevated prostate specific antigen [PSA]; N43.40 Spermatocele of epididymis, unspecified; N52.9 Male erectile dysfunction, unspecified; Z79.82 Long term (current) use of aspirin; Z79.899 Other long term (current) drug therapy
CPT/HCPCS: 55700

== ENCOUNTER → 2021-08-31 08:50 | Outpatient (CLI) | payer OTHER, SELFPAY ==
--- NOTE | 2021-08-31 08:50 | NM_ITS ---
FINAL REPORT CLINICAL HISTORY: prostate cancer 9:10am 25.6 mci tc mdp FINDINGS: EXISTING RELEVANT IMAGING STUDIES: Left knee plain films dated July 07, 2021 TECHNIQUE: The patient was injected with 25.6 mCi of technetium 99-[id number]. 3 hour delayed images were obtained. FINDINGS: There is increased tracer activity in the shoulders and knees consistent with degenerative change. No other abnormal tracer activity is identified to suggest occult fracture or metastatic disease. IMPRESSION: No findings to indicate metastatic bone disease. Reviewed, Interpreted and Dictated by Willie Khan III, MD Transcribed by Darrell Guzman Authenticated by Willie Khan III, MD on 08/31/2021 03:44:22 PM [facility]
== END ==
PROVIDERS: PCP Family Medicine; Visit Provider Urology
DX: C61 Malignant neoplasm of prostate (principal)
CPT/HCPCS: 78306; A9503

== ENCOUNTER → 2021-09-04 08:21 | Outpatient (CLI) | payer OTHER, SELFPAY ==
--- NOTE | 2021-09-04 08:22 | CT_ITS ---
FINAL REPORT TECHNIQUE: Pre-and postcontrast axial imaging was obtained after the administration of oral contrast. This study was performed with techniques to keep radiation doses as low as reasonably achievable, (ALARA). Individualized dose reduction techniques using automated exposure control or adjustment of mA and/or kV according to the patient's size were employed. CLINICAL HISTORY: prostate cancer- recent dx FINDINGS: ABDOMEN: The heart size is normal. Low attenuation structures in the hepatic lobes bilaterally are stable from prior exam measuring up to 2.4 cm, favor cysts. Although, some are too small to accurately characterize. The spleen is normal. No adrenal mass is identified. The aorta is normal in caliber. There is no significant free fluid or adenopathy. There is a tiny, nonobstructing right renal stone.. There is no hydronephrosis. PELVIS: The appendix is not identified. There is diverticulosis of the descending and sigmoid colon without evidence of diverticulitis. The urinary bladder is unremarkable. There is no significant free fluid or adenopathy. There is no acute osseous abnormality or sclerotic lesion identified. IMPRESSION: Nonobstructing right renal stone. Stable low-attenuation hepatic structures, favor cysts. Diverticulosis without evidence of diverticulitis. Reviewed, Interpreted and Dictated by Artemio Cooper MD Transcribed by Soumya Hall Authenticated by Artemio Cooper MD on 09/04/2021 12:14:[address] [facility]
== END ==
PROVIDERS: PCP Family Medicine; Visit Provider Urology
DX: C61 Malignant neoplasm of prostate (principal)
CPT/HCPCS: 74176

== ENCOUNTER 2021-09-29 09:30 | Outpatient (RCR) | payer OTHER, SELFPAY ==
--- NOTE | 2021-08-29 09:34 | HMH.PTOPEV ---
PT Outpatient Evaluation Rehab PT Outpatient Evaluation Start: 08/29/21 09:04 Freq: Status: Active Protocol: Document 08/29/21 09:20 ZHAO (Rec: 08/29/21 09:33 PHORJOSÉ MIGUEL [id number]) Electronically Signed By Isaías Lou, PT 08/29/21 09:20 Outpatient Therapy Subjective History Subjective History Pt is 55 yowm who presents with c/o pain, stiffness, and swellin gin the L knee ~ 3 wks S/P L medial and lateral meniscectomy. He reports insidious onset of pain ~ 3 mos ago, but somewhat improved since surgery. He reports no numbness/tingling in the L LE and overall much improved. Healing hematome noted to medial L thigh upon examination. PMH: HL, HTN. Chief Complaint Pain,Stiff Symptom Type Ache Symptoms Relieved By Rest/Positioning,Ice Symptoms Aggravated By Physical Activity,Walking Prior Functional Limitations Walking Current Functional Limitations Standing,Recreation Activity, Walking Symptom Description Constant but Variable Level of pain today (0-10) 4 Pain scale - at its worst (0-10) 6 Hip/Knee Eval Gait Observation General Gait Pattern Observation Antalgic Gait Palpation Tenderness left Knee Palpation Finding Tenderness Knee Palpation Overall Comment med/lat knee MMT Hip Flexion Strength Grade 4 Good Hip Abduction Strength Grade 4 Good Hip Adduction Strength Grade 5 Normal Knee Extension Strength Grade 5 Normal Knee Flexion Strength Grade 5 Normal ROM Knee Extension Active Range of Motion ( 0 degrees) Knee Flexion Active Range of Motion ( 0-112 degrees) Special Tests Hip Scouring ([place]) Test Negative Left,Negative Right Knee Anterior Drawer Test Negative Left,Negative Right Knee Anterior [place] Test Negative Left,Negative Right Knee Posterior Sag ([place] Drawer) Test Negative Left,Negative Right Knee Valgus Stress Test Negative Left,Negative Right Knee Varus Stress Test Negative Left,Negative Right Outpatient Therapy Assessment Impairments Problems/Impairmments Palpation Tenderness,Impaired Range of Motion,Impaired Strength,Impaired Endurance, Impaired Gait Pattern,Impaired Walking,Impaired Standing, Impaired Recreational Activities,Increased
== END 2021-09-29 09:35 | disposition home or self-care (01) ==
LOC: PT 09:30
PROVIDERS: PCP Family Medicine; Visit Provider Orthopaedic Surgery
DX: S83.242D Other tear of medial meniscus, current injury, left knee, subsequent encounter (principal)
CPT/HCPCS: 97110; 97163; 97530

== ENCOUNTER → 2021-10-20 14:42 | Outpatient (CLI) | payer OTHER, SELFPAY | PROVIDERS: Visit Provider Urology | DX: Z01.812 Encounter for preprocedural laboratory examination (principal); Z11.52 Encounter for screening for COVID-19; C61 Malignant neoplasm of prostate | CPT/HCPCS: C9803; U0003; U0005 ==

== ENCOUNTER 2021-10-23 07:39 | Day surgery (SDC) | payer OTHER, SELFPAY ==
[2021-10-19 10:27] VITALS: BMI 31.8
[2021-10-23 07:57] VITALS: BP 155/98; PULSE 61; RESP 16; TEMP 37.1; O2SAT 98
--- NOTE | 2021-10-23 08:13 | P.PN_ITS ---
[facility] Anesthesia Checklist - Patient Identification Patient Identification: Arm Band - Structural Data Admitted From: Home Planned Operative Procedure/s: Transrectal U/S Consent for Planned Operative Procedure(s) Verified: Yes - NPO Status Verified Time NPO: 00:00 - Additional verifications Anesthesia Reactions: No Hx Blood Transfusions: No Blood Transfusion Reaction: No - Airway Assessment C-Spine Mobility Assessed: Yes TMJ Mobility Assessed: Yes Dentition: Good Dentition - Neurological Assessment Level of Consciousness: Awake Hx Seizures: No Numbness or tingling in extremities: No - Anesthesia Plan Anesthesia Risk discussed: Yes Anesthesia Plan: Verified ASA Class: II Anesthesia Type: Local & MAC [facility] History I have reviewed the patient's past medical history: Yes Medical History: Reports:: Cancer (prostate), Hyperlipidemia, Hypertension Denies:: Diabetes Mellitus Type 1, Diabetes Mellitus Type 2, Internal Pacemaker, MRSA, Seizures *Have you ever received a pneumonia vaccine?: No *Have you received a flu vaccine this season?: No Other Medical History: Reports: Arthritis. Denies: Blood Transfusion Reaction Anesthesia experience/problems:: None Laterality Cases: Left: Arthroscopy Knee Other Surgeries: Yes: No Previous Surgery, Colonoscopy, Other. No: Pacemaker Amputation: No Fractures: No - *Social History Last grade of school completed: Some college Smoking Status: Never smoker Alcohol Intake: never Substance Use Type: denies use *Occupational Status:: employed Housing: house Household Members: spouse *Travel in the last 8 weeks: None Family Hx:: Heart Attack, Stroke
[2021-10-23 09:49] VITALS: BP 121/70; PULSE 64; RESP 16; TEMP 36.3; O2SAT 96
[2021-10-23 10:04] VITALS: BP 111/66; PULSE 63; RESP 16; O2SAT 99
[2021-10-23 10:19] VITALS: BP 143/94; PULSE 66; RESP 16; O2SAT 98
--- NOTE | 2021-10-23 10:52 | P.OP_ITS ---
Date of procedure: 10/23/21 Pre-op Diagnosis:: Prostate cancer Post-op Diagnosis:: Prostate cancer Procedure performed:: Placement of gold prostate fiducials utilizing transrectal ultrasound guidance Surgeon:: Jerry Gagnon MD ANATOMICAL EMBALMER:: Other (reina s) Anesthesia: MAC Estimated blood loss (mL): 0 Clinical Note:: 55-year-old white male with recently diagnosed prostate cancer has elected to treated with radiation therapy. He presents today for gold seed fiducial placement for for planned external beam radiation plus CyberKnife boost. Operative findings:: Four gold fiducials were placed without difficulty. Operative note:: Patient taken to the operating room after informed consent was obtained. On the stretcher he was placed into the left lateral decubitus position and monitored anesthesia care administered. After adequate analgesia the transrectal ultrasound probe was placed into the rectum. Prostate was visualized easily with transrectal ultrasound. We had previously measured it. There was evidence of some hypoechoic areas in the left side of the prostate. Local anesthetic was placed into each neurovascular bundle. For gold fiducials were then placed 1 at the right base 1 at the right apex and at the left base and 1 at the left apex. Fiducials appear to be in very good position in the coronal plane afterwards. The probe removed patient tolerated the procedure well. Condition: stable Disposition: same day Specimens:: None Complications:: None
== END 2021-10-23 10:19 | disposition home or self-care (01) ==
LOC: OR 07:40
PROVIDERS: PCP Family Medicine; Visit Provider Urology
PROC: (CPT 55876; principal; 2021-10-23 09:00)
DX: C61 Malignant neoplasm of prostate (principal); E78.5 Hyperlipidemia, unspecified; I10 Essential (primary) hypertension; M19.90 Unspecified osteoarthritis, unspecified site; Z82.3 Family history of stroke; Z79.82 Long term (current) use of aspirin; Z79.899 Other long term (current) drug therapy
CPT/HCPCS: 55876; 76942; 96374; A4648

== ENCOUNTER → 2022-03-27 14:44 | Outpatient (CLI) | payer OTHER, SELFPAY ==
--- NOTE | 2022-03-27 14:48 | XR_ITS ---
FINAL REPORT CLINICAL HISTORY: FOOT/HEEL PAIN FINDINGS: LEFT FOOT: Three views of the left foot were obtained. There is no acute fracture or dislocation. The joint spaces are intact. There is no soft tissue abnormality. IMPRESSION: No acute bony abnormality. Reviewed, Interpreted and Dictated by Willie Khan III, MD Transcribed by Yani Magdaleno Authenticated and [facility]
== END ==
PROVIDERS: PCP Family Medicine; Visit Provider Nurse Practitioner Family
DX: M79.672 Pain in left foot (principal)
CPT/HCPCS: 73630

== ENCOUNTER 2022-11-17 09:47 | Emergency (ER) | payer OTHER, SELFPAY ==
[2022-11-17 09:48] VITALS: BP 147/95; PULSE 57; RESP 18; TEMP 36.6; O2SAT 98; BMI 30.9
[2022-11-17 10:13] LABS: Apearance,Urine Clear (Clear); Color,Urine Dark Yellow (Yellow); PH,Urine 5.5 (5.0-8.5)
--- NOTE | 2022-11-17 10:13 | EXP.UTC ---
Discharge Plan Disposition Patient Disposition: Home, Self-Care Condition: Good Prescriptions Prescriptions: New ciprofloxacin HCl [Cipro] 500 mg tablet 500 mg PO BID 10 Days Qty: 20 0RF No Action pravastatin 20 MG tablet 80 mg PO HS ramipril 10 MG capsule 10 mg PO DAILY aspirin 81 MG tablet,delayed release (DR/EC) 81 mg PO DAILY coenzyme Q10 30 MG capsule 30 mg PO DAILY sulfamethoxazole-trimethoprim 1 EACH tablet 1 tab PO BID Rx Instructions: take one tablet twice a day starting 10/22/21 for 3 days. Day before procedure, day of procedure and day after procedure. Referrals Follow up/Referrals: Rocío Rhodes MD [Primary Care Provider] - See instructions Activity Restrictions/Add. Instructions Additional Instructions/Restrictions: Drink plenty of fluids. Take tylenol or ibuprofen for pain or fever. Take the medications as directed. Follow up with your regular doctor. GO TO THE ER FOR ANY WORSENING SYMPTOMS We will culture the urine. That will tell what bacteria is causing your infection and which antibiotics will treat it best. Sometimes the first antibiotic we prescribe turns out to not work against different bacteria. So, make sure you follow up within 3 days if you are not getting better. Clinical Impressions Clinical Impression: UTI (urinary tract infection) Instructions Patient Instructions: Urine Culture, DI for Urinary Tract Infection (UTI), Ciprofloxacin Discharge ED Provider: Gage Koch [facility] General Stated complaint: Possible UTI Mode of Arrival: Ambulatory Source of Information: Patient Limitations: No Limitations Time Seen by Provider: 11/17/22 10:13 HEENT Symptoms (Recalled from RN notes): No Resp Symptoms (Recalled from RN notes): No Skin Symptoms (Recalled from RN notes): No MS Symptoms (Recalled from RN notes): No Functional Status (Recalled from RN notes): wnl History of Present Illness Provider Complaint: Patient reports that he feels like he may have a UTI. Complaint of burning and pressure when urinating for 1.5 weeks now. Related Data Home Medications Medication Instructions Recorded Confirmed pravastatin 20 mg tablet 80 mg PO HS Cholesterol 02/29/20 10/23/21 ramipril 10 mg capsule 10 mg PO DAILY htn 02/29/20 10/23/21 aspirin 81 mg tablet,delayed 81 mg PO DAILY heart health 08/18/21 10/23/21 release coenzyme Q10 30 mg capsule 30 mg PO DAILY Supplement 08/18/21 10/23/21 sulfamethoxazole 800 1 tab PO BID prevention 10/23/21 10/23/21 mg-trimethoprim 160 mg tablet Previous Rx's Medication Instructions Recorded ciprofloxacin HCl 500 mg tablet 500 mg PO BID 10 days #20 tabs 11/17/22 (Cipro) Allergies Allergy/AdvReac Type Severity Reaction Status Date / Time No Known Allergies Allergy Verified 09/22/21 10:23 Worker's Comp Is this a Worker's Comp case?: No [facility] Disclaimer: The information contained in this section may have been updated after the patient was seen, as this information can be updated by other users. Social History Smoking Status: Never smoker second hand exposure: No alcohol intake: never substance use type: denies use current occupational status: employed Travel in the last 8 weeks: None household members: spouse housing: house current occupation: self current occupational exposures/hazards: No caffeine: No ROS Obtained: Yes All systems reviewed & no additional complaints except as documented Constitutional Constitutional: Denies chills and Denies fever(s) Eyes Eyes: Denies eye discharge ENT Ears, Nose, Mouth, and Throat: Denies dizziness, Denies otalgia and Denies sore throat Cardiovascular Cardiovascular: Denies chest pain Respiratory Respiratory: Denies shor
[2022-11-17 10:14] LABS: Bilirubin,Urine Negative (Negative); Blood, Urine 3+ (Negative); Glucose,Urine (UA) Negative (Negative); Ketones,Urine Negative (Negative); Protein,Urine 3+ (Negative); UTC Leukocyte Esterase,Urine Negative (Negative); UTC Nitrate,Urine Negative (Negative); Urobilinogen,Urine 0.2 EU/dl (0.2)
[2022-11-17 10:38] VITALS: BP 147/95; PULSE 57; RESP 18; TEMP 36.6; O2SAT 98
== END 2022-11-17 10:39 | disposition home or self-care (01) ==
PROVIDERS: Emergency Provider Nurse Practitioner Family; PCP Family Medicine
DX: N39.0 Urinary tract infection, site not specified (principal)
CPT/HCPCS: 81003; 87086; 99212; 99214; G0463

== ENCOUNTER 2024-08-16 14:08 | Emergency (ER) | payer OTHER, SELFPAY ==
[2024-08-16] VITALS (15 sets, daily range): BP systolic 150–185; BP diastolic 84–103; PULSE 51–66; RESP 15–18; TEMP 36.6–36.9; O2SAT 92–100; BMI 31.8
--- NOTE | 2024-08-16 14:12 | PC.NURSE ---
pt brought back to room 10 after triage was completed. pt was able to provide urine sample. IV placed in left AC. blood obtained and sent to lab. at bedside at this time [id number]
[2024-08-16 14:25] LABS: Microscopic, Urine URINE MICROSCOPIC (MICROSCOPIC)
--- NOTE | 2024-08-16 14:28 | CT_ITS ---
PROCEDURE INFORMATION: Exam: CT Abdomen And Pelvis With Contrast Exam date and time: 08/16/2024 3:02 PM Age: 58 years old Clinical indication: Abdominal pain; Flank; Right; Additional info: Prev kidney stones, R flank pain, prostate cancer TECHNIQUE: Imaging protocol: Computed tomography of the abdomen and pelvis with contrast. Radiation optimization: All CT scans at this facility use at least one of these dose optimization techniques: automated exposure control; mA and/or kV adjustment per patient size (includes targeted exams where dose is matched to clinical indication); or iterative reconstruction. Contrast material: ISOVUE; Contrast volume: 75 ml; Contrast route: IV; COMPARISON: CT ABDOMEN PELVIS WO CON 09/04/2021 10:34 AM FINDINGS: Lungs: Lung bases are clear. Liver: A 2.7 cm cyst in the left lobe of the liver noted. Additional subcentimeter low-density lesions in the left lobe and right lobe of liver too small to characterize but likely cysts. Gallbladder and biliary ducts: Normal. No calcified stones. No ductal dilation. Pancreas: Normal. No ductal dilation. Spleen: A 10 mm lucent lesion in the anterior spleen with central 3 mm calcification noted on image 23 of series 3 which is stable. Adrenal glands: Normal. No mass. Kidneys and ureters: A 7 mm obstructing stone in the mid right ureter with associated mild right-sided hydroureteronephrosis and perinephric and periureteral stranding. Remainder of the right ureter otherwise unremarkable. Left kidney and ureter otherwise unremarkable with no obstructing stones or uropathy. Stomach and bowel: Multiple diverticula of the sigmoid and descending colon. Colon otherwise unremarkable with no evidence of diverticulitis. GI tract structures otherwise unremarkable with no evident wall thickening allowing for incomplete distention. Appendix: No evidence of appendicitis. Intraperitoneal space: Unremarkable. No free air. No significant fluid collection. 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 malformation. This finding is felt to faintly visible on prior CT PE chest 02/29/2020 but is not well seen on that study as the liver is essentially obtained in noncontrast phase on CT PE studies. Lymph nodes: Unremarkable. No enlarged lymph nodes. Urinary bladder: Unremarkable as visualized. Reproductive: Prostate radiation seeds are incidentally noted. Bones/joints: Unremarkable. No acute fracture. Soft tissues: Unremarkable. IMPRESSION: 1. Obstructing 7 mm mid right ureter stone with mild right-sided hydroureteronephrosis and perinephric and periureteral stranding and mild delayed enhancement compared to the left. 2. No other acute abnormalities. 3. 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 Advise clinical assessment for any signs or symptoms that may be attributed to this finding. 4. Additional nonemergent findings as above.
[2024-08-16] MEDS: ACETAMINOPHEN 1,000MG/100ML VIAL 1000 MG IV (14:33)
[2024-08-16] MEDS: MORPHINE 4MG/ML SYRINGE 4 MG IV ×2 (14:33→17:39)
[2024-08-16] MEDS: ONDANSETRON 4MG/2ML VIAL 4 MG IV (14:33)
[2024-08-16] MEDS: KETOROLAC 30MG/ML VIAL 30 MG IV (14:33)
--- NOTE | 2024-08-16 14:37 | ED_ITS ---
Discharge Plan Disposition Patient Disposition: Home, Self-Care Condition: Good Prescriptions Prescriptions: New ketorolac 10 mg tablet 10 mg PO Q8H PRN (Reason: pain) 2 Days Qty: 6 0RF ondansetron 4 mg tablet,disintegrating 4 mg PO Q6H PRN (Reason: nausea and vomiting) Qty: 14 0RF oxycodone 5 mg tablet, oral only 5 mg PO Q6H PRN (Reason: pain) Qty: 12 0RF tamsulosin [Flomax] 0.4 mg capsule 0.4 mg PO DAILY Qty: 7 0RF No Action pravastatin 20 MG tablet 80 mg PO HS ramipril 10 MG capsule 10 mg PO DAILY ciprofloxacin HCl [Cipro] 500 mg tablet 500 mg PO BID 10 Days Qty: 20 0RF aspirin 81 MG tablet,delayed release (DR/EC) 81 mg PO DAILY coenzyme Q10 30 MG capsule 30 mg PO DAILY sulfamethoxazole-trimethoprim 1 EACH tablet 1 tab PO BID Rx Instructions: take one tablet twice a day starting 10/22/21 for 3 days. Day before procedure, day of procedure and day after procedure. Referrals Follow up/Referrals: Rocío Rhodes MD [Primary Care Provider] - See instructions Activity Restrictions/Add. Instructions Additional Instructions/Restrictions: You were found to have an obstructing right ureter stone. Dr. Gagnon has scheduled you for an appointment tomorrow at 9 AM. Please contact his office if this does not work for you. Take the Flomax, Toradol, Zofran and oxycodone as prescribed and as needed for pain and nausea. Continue to drink significant amounts of water. Please return to ED if your symptoms worsen, change in location, change in severity, new symptoms develop or if you become concerned for your health. Clinical Impressions Clinical Impression: Hydronephrosis with urinary obstruction due to ureteral calculus Instructions Patient Instructions: DI for Kidney Stones Print Language Print Language: Upper Sorbian Discharge ED Provider: Alli Rudd General Adult HPI <Alli Rudd MD - Last Filed: 08/16/24 14:40> General Chief complaint: Urogenital-Male Stated complaint: R side abd pain Time Seen by Provider: 08/16/24 14:22 Mode of Arrival: Ambulatory Source of Information: Patient Limitations: No Limitations Description of Symptoms (Recalled from ER Triage Doc. by RN): Pt presents with c/o possible kidney stone. Pt states he started to have right flank pain since yesterday evening. Pt noted he had some clots in his urine, around 2am patient had relief and thought he passed the stone. But this AM the pain has returned and states he has had a diminished urine production. Still noting some clots in the urine. Pt tried taking flomax. Has had 1 episode of vomiting. Pt has a hx of kidney stones. History of Present Illness HPI narrative: Patient is a 58-year-old male past medical history of recurrent ureterolithiasis who presents emergency department for evaluation of flank pain. Onset was acute, over the last 24 hours was preceded by bloody urine. He has had some kidney stones passed spontaneously however lately they have required basket extraction or lithotripsy. He is followed by Dr. Gagnon. Abdominal surgical history includes appendectomy. No other acute complaints at this time. Please note that above description of symptoms, in this electronic medical record under categorization of recalled from ER triage doctor by RN are reflective of an initial nursing assessment, however, is not reflective of my full history and physical exam that was personally taken and clarified. Consequentially, this preceding description of symptoms, which may include the patient's categorized chief complaint in the EMR, do not reflect my personal clinical impression, and the ultimate description of history of present illness and patient stated complaints should be deferred to this section of the note. Unless stated otherwise or congruent with this section of the note, additional signs, symptoms, or incongruence should be interpreted as inaccurate with my clinical impression. Related Data Home Medications ?Medication ?Instructions ?Recorded ?Confirmed pravastatin 20 mg tablet 80 mg PO HS Cholesterol 02/29/20 10/23/21 ramipril 10 mg capsule 10 mg PO DAILY htn 02/29/20 10/23/21 aspirin 81 mg tablet,delayed 81 mg PO DAILY heart health 08/18/21 10/23/21 release coenzyme Q10 30 mg capsule 30 mg PO DAILY Supplement 08/18/21 10/23/21 sulfamethoxazole 800 1 tab PO BID prevention 10/23/21 10/23/21 mg-trimethoprim 160 mg tablet Previous Rx's ?Medication ?Instructions ?Recorded ciprofloxacin HCl 500 mg tablet 500 mg PO BID 10 days #20 tabs 11/17/22 (Cipro) ketorolac 10 mg tablet 10 mg PO Q8H PRN pain 2 days #6 08/16/24 tabs ondansetron 4 mg disintegrating 4 mg PO Q6H PRN nausea and 08/16/24 tablet vomiting #14 tabs oxycodone 5 mg tablet,oral ONLY 5 mg PO Q6H PRN pain #12 ea 08/16/24 (not feeding tubes) tamsulosin 0.4 mg capsule (Flomax) 0.4 mg PO DAILY #7 caps 08/16/24 Allergies Allergy/AdvReac Type Severity Reaction Status Date / Time No Known Allergies Allergy Verified 09/22/21 10:23 PFS <Alli Rudd MD - Last Filed: 08/16/24 14:40> PFS Disclaimer: The information contained in this section may have been updated after the patient was seen, as this information can be updated by other users. Social History Smoking Status: Never smoker second hand exposure: No alcohol intake: never substance use type: denies use current occupational status: employed Travel in the last 8 weeks: None household members: spouse housing: house current occupation: self current occupational exposures/hazards: No caffeine: No Have you lived/traveled outside [place] in past 30 days?: No Contact w/someone who lives/traveled outside [place] past 30 days?: No Exposure to someone with infectious disease in past 14 days?: No Do you have a fever (greater than 100.4 F or 38 C)?: No Have you tested positive for COVID-19: No Exposed to someone with COVID-19 in past 14 days?: No Do you have a sore throat?: No Do you have a cough?: No Do you have any weakness?: No Do you have any diarrhea?: No Are you experiencing any unusual bleeding?: No Do you have any muscle aches/pain?: No Do you have any abdominal pain?: Yes Are you experiencing loss of taste or smell?: No Other Medical History Have you received the Flu Vaccine for this season: No Have you received the Pneumonia Vaccine: No <Alli Rudd MD - Last Filed: 08/16/24 14:40> ROS Obtained: Yes Systems reviewed as appropriate & no additional complaints except as documented Physical Exam <Alli Rudd MD - Last Filed: 08/16/24 14:40> General General appearance: alert and other (Appearing uncomfortable in bed) Head Head exam: atraumatic and normocephalic Eye Eye exam: Present PERRL ENT ENT exam: Present mucous membranes moist Neck Neck exam: Present normal inspection Chest Chest inspection: Present normal inspection and symmetric chest wall rise Respiratory Respiratory exam: Absent respiratory distress Cardiovascular Cardiovascular exam: Present regular rate and normal rhythm Abdominal Exam Abdominal exam: Present soft; Absent distention, tenderness, rebound or rigidity Extremities Exam Extremities exam: Present normal inspection Neurological Exam Neurological exam: Present alert Psychiatric Psychiatric exam: Present normal affect Skin Skin exam: Present warm and dry Medical Decision Making <Alli Rudd MD - Last Filed: 08/16/24 14:40> Medical Records Screening: Per USPSTF and CDC recommendations, given the prevalence of disease in our region, it is our hospital?s policy to screen for HIV and viral Hepatitis for all patients aged 18 and over and those with ongoing risk factors. [place] Inquiry Pt receiving controlled substance: No Vital Signs: 08/16/24 14:10 08/16/24 14:23 08/16/24 14:40 Temperature 98.4 F Temperature Source Oral Pulse Rate 63 58 L Pulse Rate [Right] 65 Respiratory Rate 18 Blood Pressure 185/101 H 174/91 H Blood Pressure [Right Arm] 176/103 H Blood Pressure Mean [Right Arm] 127 Blood Pressure Source [Right Arm] Automatic Cuff Blood Pressure Position [Right Arm] Sitting 02 Sat by Pulse Oximetry 99 100 99 Oxygen Delivery Method Room Air Room Air Room Air 08/16/24 14:46 08/16/24 15:15 08/16/24 15:31 Temperature Temperature Source Pulse Rate 63 58 L 60 Pulse Rate [Right] Respiratory Rate Blood Pressure 152/89 H 169/90 H 163/91 H Blood Pressure [Right Arm] Blood Pressure Mean [Right Arm] Blood Pressure Source [Right Arm] Blood Pressure Position [Right Arm] 02 Sat by Pulse Oximetry 99 97 92 L Oxygen Delivery Method Room Air Room Air Room Air 08/16/24 15:46 08/16/24 16:01 08/16/24 16:16 Temperature Temperature Source Pulse Rate 59 L 51 L 54 L Pulse Rate [Right] Respiratory Rate Blood Pressure 157/93 H 165/85 H 154/94 H Blood Pressure [Right Arm] Blood Pressure Mean [Right Arm] Blood Pressure Source [Right Arm] Blood Pressure Position [Right Arm] 02 Sat by Pulse Oximetry 93 L 95 95 Oxygen Delivery Method Room Air Room Air Room Air 08/16/24 16:31 08/16/24 16:46 08/16/24 17:01 Temperature Temperature Source Pulse Rate 59 L 57 L 66 Pulse Rate [Right] Respiratory Rate Blood Pressure 153/84 H 150/86 H 156/88 H Blood Pressure [Right Arm] Blood Pressure Mean [Right Arm] Blood Pressure Source [Right Arm] Blood Pressure Position [Right Arm] 02 Sat by Pulse Oximetry 95 96 97 Oxygen Delivery Method Room Air Room Air 08/16/24 17:16 08/16/24 17:30 Temperature Temperature Source Pulse Rate 66 61 Pulse Rate [Right] Respiratory Rate Blood Pressure 153/85 H 154/84 H Blood Pressure [Right Arm] Blood Pressure Mean [Right Arm] Blood Pressure Source [Right Arm] Blood Pressure Position [Right Arm] 02 Sat by Pulse Oximetry 95 97 Oxygen Delivery Method Room Air Room Air Lab Data Lab Results 08/16/24 14:20: Urine Color Yellow, Urine Appearance Clear, Urine pH 6.0, Ur Specific [place] >= 1.030, Urine Protein 2+ A, Urine Glucose (UA) Negative, Urine Ketones 1+, Urine Blood 3+ A, Urine Nitrate Negative, Urine Bilirubin 1+ A , Urine Urobilinogen 0.2, Ur Leukocyte Esterase Negative, Urine RBC 50-100, Urine WBC 3-5, Urine Bacteria 1+ 08/16/24 14:28: WBC 9.8, RBC 5.17, Hgb 15.4, Hct 44.3, MCV 85.7, MCH 29.8, MCHC 34.8, RDW 13.2, Plt Count 160, MPV 10.1, Neut % (Auto) 84.0 H, Lymph % (Auto) 7.7 L, [place] % (Auto) 7.1, Eos % (Auto) 0.3, Baso % (Auto) 0.3, Neut # (Auto) 8.3 H, Lymph # (Auto) 0.8, [place] # (Auto) 0.7, Eos # (Auto) 0.0, Baso # (Auto) 0.0, Sodium 138, Potassium 3.8, Chloride 102, Carbon Dioxide 29, Anion Gap 10.8, BUN 13, Creatinine 1.00, Estimated Creat Clear 123, Estimated GFR 77, Est GFR ( Amer) 93, Glucose 121 H, Calcium 9.2, Total Bilirubin 3.0 H, AST 35, ALT 31, Alkaline Phosphatase 91, Total Protein 7.2, Albumin 4.6, Globulin 2.6, Albumin/Globulin Ratio 1.8, Lipase 46 08/16/24 14:28 08/16/24 14:28 Orders (Tests/Meds): ED MEDICATIONS Discontinued Medications Generic Name Dose Route Start Last Admin Trade Name Freq PRN Reason Stop Dose Admin Acetaminophen 1,000 mg 08/16/24 14:28 08/16/24 14:33 Acetaminophen 1,000mg/100ml Vial IV 08/16/24 14:29 1,000 mg ONCE ONE Administration Iopamidol 75 ml 08/16/24 15:01 08/16/24 15:02 Iopamidol-370 (76%);100ml Bottle IV 08/16/24 15:02 75 ml ONCE ONE Administration Ketorolac Tromethamine 30 mg 08/16/24 14:28 08/16/24 14:33 Ketorolac 30mg/Ml Vial IV 08/16/24 14:29 30 mg ONCE ONE Administration Morphine Sulfate 4 mg 08/16/24 14:28 08/16/24 14:33 Morphine 4mg/Ml Syringe IV 08/16/24 14:29 4 mg ONCE ONE Administration Morphine Sulfate 4 mg 08/16/24 17:31 08/16/24 17:39 Morphine 4mg/Ml Syringe IV 08/16/24 17:32 4 mg ONCE ONE Administration Ondansetron HCl 4 mg 08/16/24 14:28 08/16/24 14:33 Ondansetron 4mg/2ml Vial IV 08/16/24 14:29 4 mg ONCE ONE Administration Sodium Chloride 10 ml 08/16/24 15:01 08/16/24 15:02 Sodium Chloride 0.9% 10ml Syr (Rad Only) IV 08/16/24 15:02 10 ml ONCE ONE Administration ORDERS Category Date Time Status CT abdomen pelvis w con Stat Cat Scan 08/16/24 14:28 Completed CBC w/Auto Diff [Complete Blood Count Auto Diff] Stat Lab 08/16/24 14:28 Completed CMP [Comprehensive Metabolic Panel] Stat Lab 08/16/24 14:28 Completed Lipase Stat Lab 08/16/24 14:28 Completed Urinalysis and Microscopic Stat Lab 08/16/24 14:20 Completed Medical Decision Narrative: In summary patient is a 58-year-old male with past medical history described above who presents emergency department for evaluation of right-sided flank pain in the setting of previous ureterolithiasis some of which requiring intervention. Patient is hemodynamically stable and appearing uncomfortable upon arrival, afebrile. History strongly consistent with ureterolithiasis differential also includes abdominal infection, atypical pancreatitis, pyelonephritis, spread of prostate cancer, among others. Workup will be conducted with hematologic labs, urinalysis, CT abdomen pelvis with IV contrast. Initial inventions include multimodal pain control with morphine, Tylenol, Toradol. Zofran will be administered. Workup and imaging largely pending at time of transfer of care to the oncoming physician, Dr. Dee. <Meera Dee MD - Last Filed: 08/16/24 17:48> Medical Records Medical records reviewed: Yes I reviewed the patient's medical records. Vital Signs: 08/16/24 14:10 08/16/24 14:23 08/16/24 14:40 Temperature 98.4 F Temperature Source Oral Pulse Rate 63 58 L Pulse Rate [Right] 65 Respiratory Rate 18 Blood Pressure 185/101 H 174/91 H Blood Pressure [Right Arm] 176/103 H Blood Pressure Mean [Right Arm] 127 Blood Pressure Source [Right Arm] Automatic Cuff Blood Pressure Position [Right Arm] Sitting 02 Sat by Pulse Oximetry 99 100 99 Oxygen Delivery Method Room Air Room Air Room Air 08/16/24 14:46 08/16/24 15:15 08/16/24 15:31 Temperature Temperature Source Pulse Rate 63 58 L 60 Pulse Rate [Right] Respiratory Rate Blood Pressure 152/89 H 169/90 H 163/91 H Blood Pressure [Right Arm] Blood Pressure Mean [Right Arm] Blood Pressure Source [Right Arm] Blood Pressure Position [Right Arm] 02 Sat by Pulse Oximetry 99 97 92 L Oxygen Delivery Method Room Air Room Air Room Air 08/16/24 15:46 08/16/24 16:01 08/16/24 16:16 Temperature Temperature Source Pulse Rate 59 L 51 L 54 L Pulse Rate [Right] Respiratory Rate Blood Pressure 157/93 H 165/85 H 154/94 H Blood Pressure [Right Arm] Blood Pressure Mean [Right Arm] Blood Pressure Source [Right Arm] Blood Pressure Position [Right Arm] 02 Sat by Pulse Oximetry 93 L 95 95 Oxygen Delivery Method Room Air Room Air Room Air 08/16/24 16:31 08/16/24 16:46 08/16/24 17:01 Temperature Temperature Source Pulse Rate 59 L 57 L 66 Pulse Rate [Right] Respiratory Rate Blood Pressure 153/84 H 150/86 H 156/88 H Blood Pressure [Right Arm] Blood Pressure Mean [Right Arm] Blood Pressure Source [Right Arm] Blood Pressure Position [Right Arm] 02 Sat by Pulse Oximetry 95 96 97 Oxygen Delivery Method Room Air Room Air 08/16/24 17:16 08/16/24 17:30 Temperature Temperature Source Pulse Rate 66 61 Pulse Rate [Right] Respiratory Rate Blood Pressure 153/85 H 154/84 H Blood Pressure [Right Arm] Blood Pressure Mean [Right Arm] Blood Pressure Source [Right Arm] Blood Pressure Position [Right Arm] 02 Sat by Pulse Oximetry 95 97 Oxygen Delivery Method Room Air Room Air Lab Data Lab Results 08/16/24 14:20: Urine Color Yellow, Urine Appearance Clear, Urine pH 6.0, Ur Specific [place] >= 1.030, Urine Protein 2+ A, Urine Glucose (UA) Negative, Urine Ketones 1+, Urine Blood 3+ A, Urine Nitrate Negative, Urine Bilirubin 1+ A , Urine Urobilinogen 0.2, Ur Leukocyte Esterase Negative, Urine RBC 50-100, Urine WBC 3-5, Urine Bacteria 1+ 08/16/24 14:28: WBC 9.8, RBC 5.17, Hgb 15.4, Hct 44.3, MCV 85.7, MCH 29.8, MCHC 34.8, RDW 13.2, Plt Count 160, MPV 10.1, Neut % (Auto) 84.0 H, Lymph % (Auto) 7.7 L, [place] % (Auto) 7.1, Eos % (Auto) 0.3, Baso % (Auto) 0.3, Neut # (Auto) 8.3 H, Lymph # (Auto) 0.8, [place] # (Auto) 0.7, Eos # (Auto) 0.0, Baso # (Auto) 0.0, Sodium 138, Potassium 3.8, Chloride 102, Carbon Dioxide 29, Anion Gap 10.8, BUN 13, Creatinine 1.00, Estimated Creat Clear 123, Estimated GFR 77, Est GFR ( Amer) 93, Glucose 121 H, Calcium 9.2, Total Bilirubin 3.0 H, AST 35, ALT 31, Alkaline Phosphatase 91, Total Protein 7.2, Albumin 4.6, Globulin 2.6, Albumin/Globulin Ratio 1.8, Lipase 46 Orders (Tests/Meds): ED MEDICATIONS Discontinued Medications Generic Name Dose Route Start Last Admin Trade Name Igor PRN Reason Stop Dose Admin Acetaminophen 1,000 mg 08/16/24 14:28 08/16/24 14:33 Acetaminophen 1,000mg/100ml Vial IV 08/16/24 14:29 1,000 mg ONCE ONE Administration Iopamidol 75 ml 08/16/24 15:01 08/16/24 15:02 Iopamidol-370 (76%);100ml Bottle IV 08/16/24 15:02 75 ml ONCE ONE Administration Ketorolac Tromethamine 30 mg 08/16/24 14:28 08/16/24 14:33 Ketorolac 30mg/Ml Vial IV 08/16/24 14:29 30 mg ONCE ONE Administration Morphine Sulfate 4 mg 08/16/24 14:28 08/16/24 14:33 Morphine 4mg/Ml Syringe IV 08/16/24 14:29 4 mg ONCE ONE Administration Morphine Sulfate 4 mg 08/16/24 17:31 08/16/24 17:39 Morphine 4mg/Ml Syringe IV 08/16/24 17:32 4 mg ONCE ONE Administration Ondansetron HCl 4 mg 08/16/24 14:28 08/16/24 14:33 Ondansetron 4mg/2ml Vial IV 08/16/24 14:29 4 mg ONCE ONE Administration Sodium Chloride 10 ml 08/16/24 15:01 08/16/24 15:02 Sodium Chloride 0.9% 10ml Syr (Rad Only) IV 08/16/24 15:02 10 ml ONCE ONE Administration ORDERS Category Date Time Status CT abdomen pelvis w con Stat Cat Scan 08/16/24 14:28 Completed CBC w/Auto Diff [Complete Blood Count Auto Diff] Stat Lab 08/16/24 14:28 Completed CMP [Comprehensive Metabolic Panel] Stat Lab 08/16/24 14:28 Completed Lipase Stat Lab 08/16/24 14:28 Completed Urinalysis and Microscopic Stat Lab 08/16/24 14:20 Completed Medical Decision Narrative: In summary patient is a 58-year-old male with past medical history described above who presents emergency department for evaluation of right-sided flank pain in the setting of previous ureterolithiasis some of which requiring intervention. Patient is hemodynamically stable and appearing uncomfortable upon arrival, afebrile. History strongly consistent with ureterolithiasis differential also includes abdominal infection, atypical pancreatitis, pyelonephritis, spread of prostate cancer, among others. Workup will be conducted with hematologic labs, urinalysis, CT abdomen pelvis with IV contrast. Initial inventions include multimodal pain control with morphine, Tylenol, Toradol. Zofran will be administered. Workup and imaging largely pending at time of transfer of care to the oncoming physician, Dr. Dee. Leila: On my evaluation, patient pain well-controlled. CT scan significant for right-sided hydronephrosis secondary to 7 mm obstructing stone. I spoke with the patient's urologist, Dr. Gagnon who was able to schedule the patient an appointment at 9 AM tomorrow for evaluation. Patient's urinalysis was negative for evidence of infection and patient had no leukocytosis. Patient prescribed oxycodone, Toradol, Zofran and Flomax. Patient and in agreement with this plan. Patient discharged in stable condition. Critical Care <Alli Rudd MD - Last Filed: 08/16/24 14:40> Critical Care Time Critical Care Time: No
[2024-08-16 14:38] LABS: Basophils % 0.3 % (0.1-2.0); Eosinophils % 0.3 % (0.1-12.0); Hematocrit 44.3 % (42.0-52.0); Hemoglobin 15.4 g/dL (14.1-18.0); Lymphocytes # 0.8 K/mm3 (0.7-4.5); Lymphocytes % 7.7 % (10-50); Mean Corpuscular HGB Conc 34.8 g/dL (31.8-35.4); Mean Corpuscular Hemoglobin 29.8 pg (27.0-31.2); Mean Corpuscular Volume 85.7 fl (80-94); Mean Platelet Volume 10.1 fl (7.4-10.4); Monocytes # 0.7 K/mm3 (0.1-1.0); Monocytes % 7.1 % (1.7-9.3); Neutrophils # 8.3 K/mm3 (1.8-7.8); Platelet Count 160 K/mm3 (142-424); Red Blood Count 5.17 M/mm3 (4.60-6.20); Red Cell Distribution Width 13.2 % (11.5-17.5); White Blood Count 9.8 K/mm3 (4.8-10.8)
[2024-08-16 14:39] LABS: Appearance,Urine CLEAR (Clear); Blood, Urine 3+ (Negative); Color,Urine YELLOW (Yellow); Glucose,Urine (UA) Negative (Negative); Ketones,Urine 1+ (Negative); Leukocyte Esterase,Urine Negative (Negative); Nitrate,Urine Negative (Negative); Protein,Urine 2+ (Negative); Specific Gravity, Urine >= 1.030 (1.005-1.030); Urobilinogen,Urine 0.2 EU/dl (0.2)
[2024-08-16 14:42] LABS: Albumin Level 4.6 g/dl (3.5-5.0); Chloride 102 mmol/L (98-107); Potassium 3.8 mmoL/L (3.5-5.1); Sodium 138 mmol/L (136-145)
[2024-08-16 14:44] LABS: Alanine Aminotransferase 31 U/L (12-78); Aspartate Amino Transferase 35 U/L (17-59); Blood Urea Nitrogen 13 mg/dl (9-20); Creatinine Clearance Estimated 123 mL/min (50-200); Estimated Glomerular Filt Rate 77 ml/min (>60); GFR (African American) 93 ML/MIN (>60)
[2024-08-16 14:45] LABS: Albumin/Globulin Ratio 1.8 (1.1-1.8); Alkaline Phosphatase 91 U/L (38-126); Anion Gap 10.8 mEq/L (5-15); Calcium 9.2 mg/dl (8.4-10.2); Carbon Dioxide 29 mmol/L (22.0-30.0); Globulin 2.6 g/dL (1.3-3.2); Glucose 121 mg/dl (74-100); Lipase 46 U/L (23-300); Total Protein,Serum 7.2 g/dl (6.3-8.2)
[2024-08-16 14:50] LABS: Bilirubin,Urine 1+ (Negative)
[2024-08-16 14:51] LABS: Bacteria,Urine 1+ /lpf; RBC,Urine 50-100 #/hpf (0-3)
[2024-08-16] MEDS: SODIUM CHLORIDE 0.9% 10ML SYR (RAD ONLY) 10 ML IV (15:02)
[2024-08-16] MEDS: IOPAMIDOL-370 (76%);100ML BOTTLE 75 ML IV (15:02)
--- NOTE | 2024-08-16 17:02 | PC.NURSE ---
calling [facility] transfer center for [facility] urology due to obstructing stone per
--- NOTE | 2024-08-16 17:23 | PC.NURSE ---
SPEAKING WITH AT THIS TIME
--- NOTE | 2024-08-16 17:23 | PC.NURSE ---
on the phone with urologist
== END 2024-08-16 18:23 | disposition home or self-care (01) ==
PROVIDERS: Emergency Provider Emergency Medicine; PCP Family Medicine
DX: N13.2 Hydronephrosis with renal and ureteral calculous obstruction (principal); R10.31 Right lower quadrant pain; R11.10 Vomiting, unspecified; R31.9 Hematuria, unspecified
CPT/HCPCS: 74177; 80053; 81001; 83690; 85025; 96374; 96375; 99285; J0131; J1885; J2270; J2405; Q9967

== ENCOUNTER 2024-08-19 10:13 | Outpatient (CLI) | payer OTHER, SELFPAY ==
[2024-08-19 10:19] LABS: Coronavirus 19, PCR Not Detected (NotDetected); Human Rhinovirus Not Detected (NotDetected); Influenza B, PCR Not Detected (NotDetected); Respiratory Syncytial Virus Not Detected (NotDetected)
[2024-08-19 11:48] LABS: Influenza A, PCR Detected (NotDetected)
== END 2024-08-19 23:59 | disposition home or self-care (01) ==
LOC: LAB 10:14
PROVIDERS: PCP Family Medicine; Visit Provider Physician Assistant
DX: J06.9 Acute upper respiratory infection, unspecified (principal)
CPT/HCPCS: 87631